=== PATIENT | female | born 1965 | race Two or more races ===

== ENCOUNTER 2021-04-08 18:24 | Emergency (ER) | payer BC, SELFPAY | END 2021-04-08 20:20 | disposition left against medical advice (07) | LOC: HO.ED 20:21 | PROVIDERS: Emergency Provider Emergency Medicine; PCP Internal Medicine | DX: R69 Illness, unspecified (principal) ==

== ENCOUNTER 2021-12-11 14:23 | Emergency (ER) | payer OTHER, SELFPAY ==
[2021-12-11] VITALS (7 sets, daily range): BP systolic 136–170; BP diastolic 64–98; PULSE 82–101; RESP 16–18; TEMP 36.9; O2SAT 97; BMI 27.6
--- NOTE | 2021-12-11 15:02 | ECG_ITS ---
Test Reason : SYNCOPE Blood Pressure : / mmHG Vent. Rate : 097 BPM Atrial Rate : 097 BPM P-R Int : 156 ms QRS Dur : 090 ms QT Int : 350 ms P-R-T Axes : 064 006 046 degrees QTc Int : 444 ms Normal sinus rhythm Normal ECG No previous ECGs available Referred By: Natividad Correa Electronically Signed By:LEYDA GASCA MD
[2021-12-11] MEDS: 0.9 % Sodium Chloride 1,000 ML 999 ML IV (15:15)
[2021-12-11 15:22] LABS: MANUAL DIFF FLAG NO
[2021-12-11 15:33] LABS: Basophils Absolute Auto 0.1 X10*3/uL (0.0-0.2); Basophils Percent Auto 0.6 % (0-2); Eosinophils Absolute Auto 0.1 X10*3/uL (0.0-0.4); Eosinophils Percent Auto 1.3 % (0-4); Hematocrit 40.8 % (37.0-47.0); Hemoglobin 13.8 g/dl (12.0-16.0); Imm Gran Abs Auto 0.05 X10*3/uL (0.00-0.03); Imm Gran Pct Auto 0.5 % (0.0-0.4); Lymphocytes Absolute Auto 3.4 X10*3/uL (1.2-4.9); Mean Corpuscular HGB Conc 33.8 g/dl (31.0-35.0); Mean Corpuscular Hemoglobin 29.1 pg (27.0-33.0); Mean Corpuscular Volume 85.9 fL (80.0-98.0); Monocytes Absolute Auto 0.8 X10*3/uL (0.1-1.2); Monocytes Percent Auto 7.9 % (2-11); Neutrophils Absolute Auto 5.9 x10*3/uL (2.0-8.3); Neutrophils Percent Auto 56.7 % (45-73); Platelet Count 265 X10*3/uL (160-400); Red Blood Count 4.75 X10*6/uL (4.20-5.50); Red Cell Distribution Width 12.5 % (11.0-16.0); White Blood Count 10.4 X10*3/uL (4.8-10.8)
[2021-12-11 15:37] LABS: Alanine Aminotransferase 32 U/L (0-31); Albumin Level 4.1 g/dL (3.5-5.0); Alkaline Phosphatase 117 U/L (39-117); Anion Gap 12 (12-20); Aspartate Amino Transferase 34 U/L (5-31); Blood Urea Nitrogen 15 mg/dL (9-16); Calcium 10.5 mg/dL (8.4-10.2); Carbon Dioxide 26 mmol/L (22-29); Chloride 104 mmol/L (96-108); Creatinine Clr Calc Pharmacy 79.7; Estimated Glomerular Filt Rate > 60; Glucose Random 279 mg/dL (60-115); Magnesium 1.6 mg/dL (1.6-2.6); Potassium 4.1 mmol/L (3.3-5.1); Sodium 138 mmol/L (135-145); Total Protein 7.4 g/dL (6.5-8.0)
[2021-12-11 15:41] LABS: COVID-19 Test Negative (Negative); Troponin-I High Sensitivity 3.5 ng/L (<3.5-17.0)
--- NOTE | 2021-12-11 15:42 | ED_ITS ---
HPI - Dizziness General Chief Complaint: Syncope Stated Complaint: FELLS FAINT,HIGH BP 203/103,DID NOT TAKES MEDS YET Time Seen by Provider: 12/11/21 14:51 Source: patient Mode of arrival: ambulatory Limitations: no limitations History of Present Illness HPI Narrative: patient presents to the emergency department for evaluation of lightheadedness/ dizziness described as feeling unsteady. Sudden onset while she was walking at work today. has associated nausea. Dizziness brief in nature lasting about 30 seconds to 1 minute without sitting down and resting. It improves/resolves but continued to happen frequently while at work therefore she came to the emergency department. Denies this ever happening in the past. She is a diabetic reports that her blood sugar was 130 this morning, checked by a co-worker in was 240 during episode of dizziness. She has known high blood pressure, forgot to take her blood pressure medications this morning. Denies headache, ear pain, ringing in the ears, vision changes, neck pain, chest pain, palpitations, shortness of breath dyspnea exertion, vomiting, dysuria, urinary frequency, generalized weakness. Related Data Previous Rx's Medication Instructions Recorded meclizine 25 mg tablet 25 mg PO BID PRN #7 tab 12/11/21 Allergies Allergy/AdvReac Type Severity Reaction Status Date / Time codeine [CODEINE] Allergy Unknown VOMITING Unverified 05/09/20 16:02 oxycodone [From PERCOCET] Allergy Unknown VOMITING Unverified 05/09/20 16:02 Actos Allergy Unknown Uncoded 04/27/12 00:00 actos Allergy Unknown Uncoded 12/25/11 00:00 Codeine Phosphate Allergy Unknown Uncoded 04/27/12 00:00 Percocet Allergy Unknown Uncoded 04/27/12 00:00 Review of Systems Review of Systems: Constitutional : No Fever, No Chills, No Fatigue ENT/Mouth : No sore throat, No Rhinorrhea Eyes: No Eye Pain, No Swelling, No Redness Cardiovascular : No Chest Pain, No SOB, No Dyspnea on Exertion Respiratory : No Cough, No Sputum Gastrointestinal : No Nausea, No Vomiting, No Diarrhea, No abdominal Pain Genitourinary : No Dysuria, No Urinary Frequency, No Hematuria, Musculoskeletal : No joint pain, No Myalgias, No Joint Swelling Skin : No Skin Lesions, No rash Neuro : Positive dizziness. No Weakness, No Numbness, No Headache Psych : No Anxiety/Panic, No Depression Heme/Lymph: No Bruising, No Bleeding, No Lymphadenopathy Endocrine : No Polyuria, No Polydipsia Yes all other systems are reviewed and are negative [facility] Past Medical History Attestation statement: The following information was validated with the patient. Source: old records reviewed Medical History Diabetes Hypertension Social History Social History Advance Directives: No Advance Directives Information Provided: No Patient : No Physical Exam Vital Signs: Vital Signs: Last Vital Signs Temp 98.4 F 12/11/21 14:30 Pulse 85 12/11/21 17:33 Resp 16 12/11/21 17:33 BP 145/74 H 12/11/21 17:33 Pulse Ox 97 12/11/21 17:33 BMI result Body Mass Index 27.6 Vital signs have been reviewed and appeared to be correct. Blood pressure marcus gay initially at 170/77 at the time of my exam had 157/65.? Heart rate normal.? Respiration rate normal. Temperature normal.? Oxygen saturation normal. Appearance: Alert.?Oriented to person, place and time. No acute distress.?Normal affect. Eyes: Pupils equal, round and reactive to light.?EOMi. No Nystagmus ENT: Pharynx normal.?? Neck: Normal inspection.? Neck supple.?? CVS: Heart sounds normal. Normal heart rate and rhythm.? Pulses normal.?? Respiratory: No respiratory distress.? Lung sounds clear to auscultation bilaterally?? Abdomen: Soft and non-tender. Normoactive bowel sounds. Skin: Skin warm and dry.? Normal skin color.? Extremities: No lower extremity edema.? No calf ttp? Neuro: Moves all extremities spontaneously. Sensation intact bilaterally. CN II- XII intact. No focal neuro deficits. Ambulates with normal steady gait. Course Course Course Narrative: Patient is a 55-year-old female with a past medical history of asthma, diabetes, hypertension, presenting for evaluation dizziness. Dizziness occured with exertion but improved with continued exertion. no neck pain, no headache, neuro exam with no abnormal findings, no focal neuro deficits, no spontaneous or gaze evoked nystagmus, no ataxia, no diplopia, dysarthria, dysphagia, dysphonia, dysmetria. Will obtain CBC to evaluate for leukocytosis/ anemia, CMP to evaluate for abnormal electrolytes /abnormal renal function/ abnormal hepatic function, EKG and troponin to evaluate for ischemia/ACS. Given the sudden onset of dizziness, severe intensity, episodic nature, without tinnitus. Most consistent with BPPV as it is triggered with certain head movements eliciting dizziness. will obtain orthostatic vital signs, give 1 L normal saline IV fluids, and trial meclizine. Reevaluation(s) Reevaluation #1: CBC unremarkable. CMP overall unremarkable, glucose is elevated at 279. Troponin 3.5, EKG reveals normal sinus rhythm, no acute concerns for ischemia, HEART score 2, ACS is unlikely. Orthostatic vitals signs are normal. COVID-19 testing is negative. symptoms improved after receiving IV fluids and meclizine. Discussed findings with patient, plan for discharge with meclizine for 2 days, for vertigo, and recommend contacting primary care provider to schedule follow- up visit in 1-3 days. Discussed reasons to return to the emergency department. All questions were answered and patient agrees with plan of care for discharge home Time: 16:34 [facility] - Dizziness Medical Records Attestation: I reviewed the patient's medical records. Lab Data Attestation: I reviewed the patient's lab results. Result diagrams: 12/11/21 15:13 12/11/21 15:13 Labs: Lab Results 12/11/21 12/11/21 12/11/21 Range/Units 15:13 15:13 15:13 WBC 10.4 (4.8-10.8) X10*3/uL RBC 4.75 (4.20-5.50) X10*6/uL Hgb 13.8 (12.0-16.0) g/dl Hct 40.8 (37.0-47.0) % MCV 85.9 (80.0-98.0) fL MCH 29.1 (27.0-33.0) pg MCHC 33.8 (31.0-35.0) g/dl RDW 12.5 (11.0-16.0) % Plt Count 265 (160-400) X10*3/uL MPV 11.0 (9.4-12.3) fL Immature Gran % (Auto) 0.5 H (0.0-0.4) % Neut % (Auto) 56.7 (45-73) % Lymph % (Auto) 33.0 (20-40) % [place] % (Auto) 7.9 (2-11) % Eos % (Auto) 1.3 (0-4) % Baso % (Auto) 0.6 (0-2) % Lymph # (Auto) 3.4 (1.2-4.9) X10*3/uL [place] # (Auto) 0.8 (0.1-1.2) X10*3/uL Eos # (Auto) 0.1 (0.0-0.4) X10*3/uL Baso # (Auto) 0.1 (0.0-0.2) X10*3/uL Abs Immat Gran (auto) 0.05 H (0.00-0.03) X10*3/uL Absolute Neuts (auto) 5.9 (2.0-8.3) x10*3/uL Absolute Nucleated RBC 0.000 (0.0-0.012) X10*3/uL Nucleated RBC % (auto) 0.0 (0.0-0.2) /100WBC Sodium 138 (135-145) mmol/L Potassium 4.1 (3.3-5.1) mmol/L Chloride 104 (96-108) mmol/L Carbon Dioxide 26 (22-29) mmol/L Anion Gap 12 (12-20) BUN 15 (9-16) mg/dL Creatinine 0.78 (0.5-1.4) mg/dL Estim Creat Clear Calc 79.7 Estimated GFR > 60 Random Glucose 279 H (60-115) mg/dL Calcium 10.5 H (8.4-10.2) mg/dL Magnesium 1.6 (1.6-2.6) mg/dL Total Bilirubin 1.0 (0.0-1.0) mg/dL AST 34 H (5-31) U/L ALT 32 H (0-31) U/L Alkaline Phosphatase 117 (39-117) U/L Troponin I High Sens 3.5 (<3.5-17.0) ng/L Total Protein 7.4 (6.5-8.0) g/dL Albumin 4.1 (3.5-5.0) g/dL COVID-19 ([facility]O) (Negative) COVID-19 Clin Com 12/11/21 Range/Units 15:13 WBC (4.8-10.8) X10*3/uL RBC (4.20-5.50) X10*6/uL Hgb (12.0-16.0) g/dl Hct (37.0-47.0) % MCV (80.0-98.0) fL MCH (27.0-33.0) pg MCHC (31.0-35.0) g/dl RDW (11.0-16.0) % Plt Count (160-400) X10*3/uL MPV (9.4-12.3) fL Immature Gran % (Auto) (0.0-0.4) % Neut % (Auto) (45-73) % Lymph % (Auto) (20-40) % [place] % (Auto) (2-11) % Eos % (Auto) (0-4) % Baso % (Auto) (0-2) % Lymph # (Auto) (1.2-4.9) X10*3/uL [place] # (Auto) (0.1-1.2) X10*3/uL Eos # (Auto) (0.0-0.4) X10*3/uL Baso # (Auto) (0.0-0.2) X10*3/uL Abs Immat Gran (auto) (0.00-0.03) X10*3/uL Absolute Neuts (auto) (2.0-8.3) x10*3/uL Absolute Nucleated RBC (0.0-0.012) X10*3/uL Nucleated RBC % (auto) (0.0-0.2) /100WBC Sodium (135-145) mmol/L Potassium (3.3-5.1) mmol/L Chloride (96-108) mmol/L Carbon Dioxide (22-29) mmol/L Anion Gap (12-20) BUN (9-16) mg/dL Creatinine (0.5-1.4) mg/dL Estim Creat Clear Calc Estimated GFR Random Glucose (60-115) mg/dL Calcium (8.4-10.2) mg/dL Magnesium (1.6-2.6) mg/dL Total Bilirubin (0.0-1.0) mg/dL AST (5-31) U/L ALT (0-31) U/L Alkaline Phosphatase (39-117) U/L Troponin I High Sens (<3.5-17.0) ng/L Total Protein (6.5-8.0) g/dL Albumin (3.5-5.0) g/dL COVID-19 ([facility]O) Negative (Negative) COVID-19 Clin Com See Note ECG Data Attestation: I personally reviewed and interpreted this ECG as follows: ECG interpretation date: 12/11/21 ECG interpretation time: 15:54 Prior ECG tracings: not available for review Interpretation: Rate: 97 Rhythm:? normal sinus rhythm [place]:? normal Normal P waves.? Normal ZINA.?? Normal QRS complex.?? ST T wave :?? no ST elevation, ST depression, no T-wave inversion qTC: 444 prior studies:? none available The study has been interpreted contemporaneously by me. Discharge Plan Discharge Clinical Impression: Dizziness Patient Disposition: Home, Self-Care Instructions: Vertigo (ED), Dizziness (ED) Additional Instructions: You dizziness may be related to vertigo, you had improvement in your symptoms after receiving meclizine while in the emergency department. You have been given a short course of meclizine a trial at home as needed for dizziness. Please contact your primary care provider to schedule a follow-up visit within 1-3 days. Return to the emergency department with any new or worsening symptoms or concerns Prescriptions: New meclizine 25 mg tablet 25 mg PO BID PRN (Reason: dizziness) Qty: 7 0RF Interventions: ED Discharge Assessment Last Done: 12/11/21 17:41 Discharge Date/Time: 12/11/21 18:14
[2021-12-11] MEDS: Meclizine HCl 25 MG TABLET PO (16:03)
== END 2021-12-11 18:14 | disposition home or self-care (01) ==
PROVIDERS: Nurse Practitioner Family; Emergency Provider Student in an Organized Health Care Education/Training Program; PCP Internal Medicine
DX: R42 Dizziness and giddiness (principal); Z79.899 Other long term (current) drug therapy; Z20.822 Contact with and (suspected) exposure to COVID-19
CPT/HCPCS: 80053; 83735; 84484; 85025; 87635; 93005; 96360; 99283; 99284